=== PATIENT | female | born 1955 | race Caucasian/White ===

== ENCOUNTER 2017-08-17 09:30 | Emergency (ER) | payer SELFPAY ==
--- NOTE | 2017-08-17 10:36 | RAD ---
INDICATION: Right wrist injury. TECHNIQUE: 3 views of the right wrist were obtained. FINDINGS: On the lateral view there is a linear area of decreased density likely representing intramuscular fat less likely air. The bones are in normal alignment. No fracture is seen. IMPRESSION: 1. NO FRACTURE IS SEEN IF THE PATIENT'S SYMPTOMS PERSIST RECOMMEND FOLLOW-UP IMAGING. 2. ON THE LATERAL VIEW THERE IS A LINEAR AREA OF DECREASED DENSITY LIKELY REPRESENTING INTRAMUSCULAR FAT LESS LIKELY AIR, RECOMMEND CLINICAL CORRELATION.
--- NOTE | 2017-08-17 11:08 | ED ---
Upper Extremity Pain - HPI Summary HPI Summary: Patient presents to the with CC of of right forearm pain. She states she injured the area while at work this morning. One of the long boards she was working on, slid down and created a direct blow to the right anterior/dorsal pain in the right arm. Denies pain with ROM. Denies numbness, tingling, or temperature changes. There is ecchymosis over the area. She is also here for a drug screen/UA d/t policy. - History of Current Complaint Chief Complaint: UCUpperExtremity Stated Complaint: WRIST INJURY Time Seen by Provider: 08/17/17 10:33 Hx Obtained From: Patient Mechanism Of Injury: Direct Blow Onset/Duration: Started Hours Ago Timing: Constant Severity Initially: Mild Severity Currently: Mild Pain Location: Arm Character: Aching Aggravating Factor(s): Movement, Lifting, Flexion, Extension, Internal/External Rotation Alleviating Factor(s): Rest, Ice Associated Signs & Symptoms: Positive: Bruising Related History: Occupational Injury, Dominant Hand Right - Risk Factors Non-Orthopedic Risk Factor: Negative DVT Risk Factors: Negative Septic Arthritis Risk Factor: Negative Compartment Syndrome Risk Factors: Pain - Allergies/Home Medications Allergies/Adverse Reactions: Allergies Allergy/AdvReac Type Severity Reaction Status Date / Time No Known Allergies Allergy Verified 08/17/17 09:54 Home Medications: Home Medications Ibuprofen TAB* [Motrin TAB* 600 MG] 08/17/17 [History] PMH/Surg Hx/FS Hx/Imm Hx Previously Healthy: Yes - Surgical History Surgery Procedure, Year, and Place: tubal ligation - Immunization History Hx Pertussis Vaccination: No Immunizations Up to Date: Unable to Obtain/Confirm Infectious Disease History: No Infectious Disease History: Denies: History Other Infectious Disease, Traveled Outside the [place] in Last 30 Days - Social History Occupation: Employed Full-time Lives: With Family Alcohol Use: None Hx Substance Use: No Substance Use Type: Reports: None Hx Tobacco Use: Yes Smoking Status (MU): Heavy Every Day Tobacco Smoker Amount Used/How Often: 1/3 PPD Review of Systems Constitutional: Negative Eyes: Negative Cardiovascular: Negative Respiratory: Negative Gastrointestinal: Negative Positive: no symptoms reported, see HPI Positive: Arthralgia Positive: Bruising Neurological: Negative Psychological: Normal All Other Systems Reviewed And Are Negative: Yes Physical Exam Triage Information Reviewed: Yes Vital Signs On Initial Exam: Initial Vitals Temp Pulse Resp BP Pulse Ox 98.1 F 69 16 166/91 97 08/17/17 09:55 08/17/17 09:55 08/17/17 09:55 08/17/17 09:55 08/17/17 09:55 Vital Signs Reviewed: Yes Appearance: Positive: Well-Appearing, Well-Nourished Skin: Positive: Warm, Skin Color Reflects Adequate Perfusion, Other - ECCYMOSIS OVER THE DORSUM OF THE RIGHT FOREARM Neck: Positive: Supple, No Lymphadenopathy Respiratory/Lung Sounds: Positive: Clear to Auscultation, Breath Sounds Present Cardiovascular: Positive: Normal, RRR, Pulses are Symmetrical in both Upper and Lower Extremities Musculoskeletal: Positive: Normal, Strength/ROM Intact Neurological: Positive: Sensory/Motor Intact, Alert, Oriented to Person Place, Time, Pronator Drift Present Psychiatric: Positive: Normal AVPU Assessment: Alert Diagnostics - Vital Signs Vital Signs Temp Pulse Resp BP Pulse Ox 08/17/17 09:55 98.1 F 69 16 166/91 97 - Laboratory Lab Statement: Any lab studies that have been ordered have been reviewed, and results considered in the medical decision making process. Course/Dx - Course Course Of Treatment: Xray obtained of the extremity. 1. NO FRACTURE IS SEEN IF THE PATIENT'S SYMPTOMS PERSIST RECOMMEND FOLLOW-UP IMAGING. 2. ON THE LATERAL VIEW THERE IS A LINEAR AREA OF DECREASED DENSITY LIKELY REPRESENTING. INTRAMUSCULAR FAT LESS LIKELY AIR, RECOMMEND CLINICAL CORRELATION. There is some swelling over the right dorsum of the wrist. Full ROM without pain. Physical Exam: Thorough physical exam was performed, focusing on special wrist tests. Limited ROM. No pain with palpation over ulnar aspect of wrist at ulnar head. No pain with palpation over radial aspect over radial head suggesting a fracture. No pain, swelling or tenderness over anatomical snuffbox. No crepitus noted. No pain on palpation over medial or lateral elbow or forearm tenderness. Pulses intact bilaterally. No temperature change, or pallor noted bilaterally. Sensory intact of radial, medial and ulnar nerve. Capillary refill < 2 sec. She is encouraged to go to the ED for drug screen as we are unable to perform thoses tests here. - Diagnoses Differential Diagnosis/HQI/PQRI: Positive: Fracture (Open), Fracture (Closed), Strain, Sprain Provider Diagnoses: Forearm contusion Discharge - Discharge Plan Condition: Stable Disposition: HOME Patient Education Materials: Arm Pain (ED) Referrals: Seth Briseno MD [Primary Care Provider] - Additional Instructions: Go directly to the ED for a blood draw/ drug screen
== END 2017-08-17 11:05 | disposition home or self-care (01) ==
LOC: UCEAST 09:30
DX: S50.11XA Contusion of right forearm, initial encounter (principal); W20.8XXA Other cause of strike by thrown, projected or falling object, initial encounter; Y93.9 Activity, unspecified; Y92.9 Unspecified place or not applicable; Y99.9 Unspecified external cause status
CPT/HCPCS: 99202; G0463

== ENCOUNTER 2019-08-24 11:59 | Emergency (ER) | payer MEDICAID ==
[2019-08-24] MEDS ORDERED: Clindamycin 600 MG/D5W BAG(*) 600 MG/50 ML BAG IV ONE (13:30)
[2019-08-24 14:14] LABS: ABS Lymphocytes 0.6 10^3/ul (1.0-4.8); ABS Monocytes 0.6 10^3/ul (0-0.8); ABS Neutrophils 5.1 10^3/ul (1.5-7.7); Eosinophil % 0.1 %; Hematocrit 40 % (35-47); Lymphocyte % 9.2 %; Mean Corpuscular HGB Conc 35 g/dL (31-36); Mean Corpuscular Hemoglobin 31 pg (27-31); Mean Corpuscular Volume 90 fL (80-97); Mean Platelet Volume 8.4 fL (7.4-10.4); Platelet Count 181 10^3/uL (150-450); Red Blood Count 4.47 10^6 /uL (3.70-4.87); Red Cell Distribution Width 13 % (10-15); White Blood Count 6.2 10^3/uL (3.5-10.8)
[2019-08-24 14:38] LABS: Albumin 3.6 g/dL (3.2-5.2); Albumin/Globulin Ratio 1.1 (1-3); BUN/Creatinine Ratio 8.9 (8-20); C Reactive Protein 178.84 mg/L (<8.01); Calcium 9.1 mg/dL (8.6-10.3); EGFR African American 59.3 (>60); Globulin 3.3 g/dL (2-4); Potassium 3.6 mmol/L (3.5-5.0); Total Bilirubin 0.9 mg/dL (0.2-1.0); Total Protein 6.9 g/dL (6.4-8.9)
[2019-08-24 16:13] VITALS: BP 115/68
--- NOTE | 2019-08-25 11:02 | ED ---
Skin Complaint - HPI Summary HPI Summary: This patient is a 64-year-old female presenting to the ED with a 2 day history of left sided cheek erythema and warmth radiating now around to the left eye with associated swelling under the eye. No eyelid involvement. No involvement of the upper eyelid or erythema around the upper portion of the eye. Denies any eye pain or symptoms of entrapment. Denies any difficulty with vision. Denies any hives, vesicles, fevers, sweats, chills. Denies any ear involvement. She states this never happened to her before. She endorses 2 days ago symptoms began with a mild case of erythema and developed into warmth and feels is now spreading to the entire left side of the face. She has been placing ice packs with minimal improvement of the swelling just below the left eye/cheek. - History of Current Complaint Chief Complaint: EDRashSkinAbscess Time Seen by Provider: 08/24/19 12:57 Stated Complaint: RASH/SWOLLEN FACE PER PT Hx Obtained From: Patient Onset/Duration: Started Hours Ago Skin Exposure Onset/Duration: Days Ago Timing: Constant Onset Severity: Mild Current Severity: Mild Pain Intensity: 0 Pain Scale Used: 0-10 Numeric Skin Location: Face Aggravating Symptom(s): Nothing Alleviating Symptom(s): Nothing Associated Signs & Symptoms: Negative - Allergy/Home Medications Allergies/Adverse Reactions: Allergies Allergy/AdvReac Type Severity Reaction Status Date / Time No Known Allergies Allergy Verified 08/17/17 09:54 PMH/Surg Hx/FS Hx/Imm Hx Previously Healthy: Yes - Surgical History Surgery Procedure, Year, and Place: tubal ligation - Immunization History Hx Pertussis Vaccination: No Immunizations Up to Date: Yes Infectious Disease History: No Infectious Disease History: Denies: History Other Infectious Disease, Traveled Outside the [place] in Last 30 Days - Social History Occupation: Employed Full-time Lives: With Family Alcohol Use: None Hx Substance Use: No Substance Use Type: Reports: None Hx Tobacco Use: Yes Smoking Status (MU): Heavy Every Day Tobacco Smoker Amount Used/How Often: 1/3 PPD Review of Systems Constitutional: Negative Negative: Fever, Chills, Fatigue, Skin Diaphoresis Negative: Palpitations, Chest Pain Negative: Shortness Of Breath, Cough Genitourinary: Negative Positive: no symptoms reported, see HPI Negative: Arthralgia, Myalgia Positive: Other - erythema, warmth without lesions to the L side of the face. Negative: Rash, Bruising Neurological: Negative All Other Systems Reviewed And Are Negative: Yes Physical Exam Triage Information Reviewed: Yes Vital Signs On Initial Exam: Initial Vitals Temp Pulse Resp BP Pulse Ox 101.6 F 83 15 144/94 96 08/24/19 12:00 08/24/19 12:00 08/24/19 12:00 08/24/19 12:00 08/24/19 12:00 Vital Signs Reviewed: Yes Appearance: Positive: Well-Appearing, Well-Nourished Skin: Positive: Other - see below Head/Face: Positive: Normal Head/Face Inspection Eyes: Positive: EOMI, Conjunctiva Clear ENT: Positive: Nasal drainage, Uvula midline. Negative: Dental tenderness, Sinus tenderness Neck: Positive: Supple, Nontender, No Lymphadenopathy Respiratory/Lung Sounds: Positive: Clear to Auscultation, Breath Sounds Present Cardiovascular: Positive: RRR, Pulses are Symmetrical in both Upper and Lower Extremities Musculoskeletal: Positive: Normal, Strength/ROM Intact Neurological: Positive: Sensory/Motor Intact, Alert, Oriented to Person Place, Time, Speech Normal Psychiatric: Positive: Affect/Mood Appropriate Procedures - Sedation Patient Received Moderate/Deep Sedation with Procedure: No Diagnostics - Vital Signs Vital Signs Temp Pulse Resp BP Pulse Ox 08/24/19 16:13 98.3 F 60 16 115/68 96 08/24/19 14:44 99.2 F 60 16 103/65 99 08/24/19 12:00 101.6 F 83 15 144/94 96 - Laboratory Lab Results: Lab Results 08/24/19 08/24/19 08/24/19 Range/Units 14:06 14:06 14:06 WBC 6.2 (3.5-10.8) 10^3/uL RBC 4.47 (3.70-4.87) 10^6 /uL Hgb 14.0 (12.0-16.0) g/dL Hct 40 (35-47) % MCV 90 (80-97) fL MCH 31 (27-31) pg MCHC 35 (31-36) g/dL RDW 13 (10-15) % Plt Count 181 (150-450) 10^3/uL MPV 8.4 (7.4-10.4) fL Neut % (Auto) 81.1 % Lymph % (Auto) 9.2 % [place] % (Auto) 9.1 % Eos % (Auto) 0.1 % Baso % (Auto) 0.5 % Absolute Neuts (auto) 5.1 (1.5-7.7) 10^3/ul Absolute Lymphs (auto) 0.6 L (1.0-4.8) 10^3/ul Absolute Monos (auto) 0.6 (0-0.8) 10^3/ul Absolute Eos (auto) 0.0 (0-0.6) 10^3/ul Absolute Basos (auto) 0.0 (0-0.2) 10^3/ul Absolute Nucleated RBC 0.0 10^3/ul Nucleated RBC % 0.0 Sodium 130 L (135-145) mmol/L Potassium 3.6 (3.5-5.0) mmol/L Chloride 96 L (101-111) mmol/L Carbon Dioxide 29 (22-32) mmol/L Anion Gap 5 (2-11) mmol/L BUN 10 (6-24) mg/dL Creatinine 1.12 H (0.51-0.95) mg/dL Est GFR ( Amer) 59.3 (>60) Est GFR (Non-Af Amer) 49.0 (>60) BUN/Creatinine Ratio 8.9 (8-20) Glucose 109 H (70-100) mg/dL Lactic Acid 0.6 (0.5-2.0) mmol/L Calcium 9.1 (8.6-10.3) mg/dL Total Bilirubin 0.90 (0.2-1.0) mg/dL AST 74 H (13-39) U/L ALT 31 (7-52) U/L Alkaline Phosphatase 152 H (34-104) U/L C-Reactive Protein 178.84 H (<8.01) mg/L Total Protein 6.9 (6.4-8.9) g/dL Albumin 3.6 (3.2-5.2) g/dL Globulin 3.3 (2-4) g/dL Albumin/Globulin Ratio 1.1 (1-3) Result Diagrams: 08/24/19 14:06 08/24/19 14:06 Lab Statement: Any lab studies that have been ordered have been reviewed, and results considered in the medical decision making process. Course/Dx - Course Course Of Treatment: During this course of treatment, the patient is evaluated for left-sided facial swelling/erythema with mild amount of tenderness. She states she has been taking Benadryl over the past 2 days without relief of her symptoms. On physical examination, there is erythema and warmth over the left side of the face involving the cheek and just below the left eye without eyelid involvement. There is some erythema to the temporal region radiating up into the forehead on the left side. There are no associated vesicles, open lesions, abrasions or weeping to the area. This appears to be a cellulitis without erysipelas. There is no conjunctival injection, no signs of the trauma and patient denies any pain with movement of the eye. No eyelid swelling bilaterally. No involvement of the ear. This does not appear to be vesicular/ [place] Bec[place] and no nasal involvement. Patient is given 600 mg IV clindamycin as well as fluids for a facial cellulitis. No evidence of a periorbital or orbital cellulitis. Labs obtained which shows sodium of 130. Glucose 109. CRP 178. Patient will be given clindamycin PO for at home 7 days. She understands strict return precautions and will return if she develops any fevers , worsening erythema, swelling, warmth, vesicular lesions or other changing symptoms. Afebrile. - Differential Diagnoses - Skin Complaint Differential Diagnoses: Allergic Reaction, Other - viral, shingles, erysipelas, rash, allergic reaction, winkler becerra - Diagnoses Provider Diagnoses: Cellulitis Discharge ED - Sign-Out/Discharge Documenting (check all that apply): Patient Departure - Discharge Plan Condition: Stable Disposition: HOME Prescriptions: Clindamycin Cap(NF) [Clindamycin Cap 300 mg Cap(NF)] 300 mg PO Q6H #28 cap Loratadine [Claritin 10 MG CAP] 10 mg PO DAILY #15 cap Ondansetron ODT TAB* [Zofran 4 MG Odt TAB*] 4 mg PO Q6H PRN #12 tab.odt MDD 4 PRN Reason: Nausea Patient Education Materials: Cellulitis (ED) Referrals: Seth Briseno MD [Primary Care Provider] - Additional Instructions: Clindamycin 300mg four times daily Claritin once daily Zofran up to four times daily as needed for nausea If you develop any worsening symptoms, return to the ED For worsening redness, swelling, or fevers - return to the ED - Billing Disposition and Condition Condition: STABLE Disposition: Home
== END 2019-08-24 16:17 | disposition home or self-care (01) ==
LOC: ED 11:59
DX: L03.211 Cellulitis of face (principal); F17.210 Nicotine dependence, cigarettes, uncomplicated
CPT/HCPCS: 36415; 80053; 83605; 85025; 86140; 96365; 96374; 99282